=== PATIENT | female | born 1965 | race Caucasian/White ===

== ENCOUNTER 2017-07-15 12:08 | Emergency (ER) | payer MEDICAID, OTHER ==
[~2017-07-15] VITALS: Ht 160 cm; Wt 56.7 kg
[~2017-07-15 12:08] MED LIST: ARIP15TA2 PO; ATEN-41 PO; BENZ0.5T3 PO; CARB-61 PO; FLUT1DIS3 IH; FURO-149 PO; KLORCON PO; LANS30CA10 PO; LEVE500T13 PO; LORA-259 PO; LORA10TA68 PO; MONT10TA22 PO; NEU400 PO; PROP1TAB3 PO; SERT-131 PO; SPIR25TA4 PO; VERAMYST
[2017-07-15 12:10] VITALS: BP_SYST 133
[2017-07-15] MEDS ORDERED: OXYCODONE/ACETAMINOPHEN *10*mg/325 mg TABLET PO ONE (12:45)
[2017-07-15 13:18] VITALS: BP_SYST 123
== END 2017-07-15 13:18 | disposition home or self-care (01) ==
LOC: SED 12:08
DX: S93.401A Sprain of unspecified ligament of right ankle, initial encounter (principal); M25.551 Pain in right hip; J44.9 Chronic obstructive pulmonary disease, unspecified; K74.60 Unspecified cirrhosis of liver; Z86.73 Personal history of transient ischemic attack (TIA), and cerebral infarction without residual deficits; Z85.3 Personal history of malignant neoplasm of breast; Z95.0 Presence of cardiac pacemaker; Z88.2 Allergy status to sulfonamides; Z88.1 Allergy status to other antibiotic agents; Z79.899 Other long term (current) drug therapy; W22.8XXA Striking against or struck by other objects, initial encounter; Y93.01 Activity, walking, marching and hiking; Y92.89 Other specified places as the place of occurrence of the external cause; Y99.8 Other external cause status
CPT/HCPCS: 73502; 99284

== ENCOUNTER 2021-04-15 09:41 | Emergency (ER) | payer BC, MEDICAID ==
[~2021-04-15] VITALS: Ht 160 cm; Wt 59.0 kg
[~2021-04-15 09:41] MED LIST changes: -BENZ0.5T3 PO; +BENZ0.5T43 PO; -LANS30CA10 PO; +LANS30CA53 PO; -LEVE500T13 PO; +LEVE500T9 PO; -SPIR25TA4 PO; +SPIR25TA6 PO
[2021-04-15 09:49] VITALS: BP_SYST 131
[2021-04-15 10:33] LABS: BASOPHILS # (AUTO) 0.1 K/uL (0.0-0.2); BASOPHILS % (AUTO) 0.8 % (0.0-2.0); EOSINOPHILS # (AUTO) 0.3 K/uL (0.0-0.4); EOSINOPHILS % (AUTO) 3.8 % (0.0-4.0); HEMATOCRIT 35.8 % (36-48); HEMOGLOBIN 12.3 g/dL (12.0-16.0); LYMPHOCYTES # (AUTO) 2.9 K/uL (1.0-5.5); LYMPHOCYTES % (AUTO) 33.5 % (20.5-51.5); MEAN CORPUSCULAR HEMOGLOBIN 31 pg (27-31); MEAN CORPUSCULAR HGB CONC 34 % (32-36); MEAN CORPUSCULAR VOLUME 90 fL (79.0-98.0); MONOCYTES # (AUTO) 0.8 K/uL (0.0-1.0); MONOCYTES % (AUTO) 9.3 % (1.7-9.3); NEUTROPHILS # (AUTO) 4.6 K/uL (1.8-7.7); NEUTROPHILS % (AUTO) 52.6 % (40.0-70.0); PLATELET COUNT (AUTO) 304 K/uL (130-430); RED BLOOD CELL COUNT(AUTO) 3.98 MIL/uL (4.2-6.2); RED CELL DISTRIBUTION WIDTH 12.6 % (9.0-15.0); WHITE BLOOD COUNT (AUTO) 8.7 K/uL (4.8-10.8)
[2021-04-15 10:53] LABS: CALCIUM 9.1 mg/dL (8.4-11.0); POTASSIUM 5.3 mmol/L (3.5-5.1)
[2021-04-15 10:56] LABS: PROTHROMBIN TIME 9.9 SECS (9.5-12.5)
[2021-04-15 10:58] LABS: ALBUMIN 3.4 g/dL (3.4-4.8); TOTAL BILIRUBIN 0.3 mg/dL (0.0-1.0)
[2021-04-15] MEDS ORDERED: IBUP-1969 PO (11:13)
[2021-04-15] MEDS ORDERED: HYDR-3917 PO (11:13)
[2021-04-15] MEDS ORDERED: KETOROLAC TROMETHAMINE 30 MG VIAL IM ONE (11:30)
[2021-04-15 11:31] VITALS: BP_SYST 131
== END 2021-04-15 11:31 | disposition home or self-care (01) ==
LOC: SED 09:41
DX: R07.89 Other chest pain (principal); J44.9 Chronic obstructive pulmonary disease, unspecified; Z88.1 Allergy status to other antibiotic agents; Z88.2 Allergy status to sulfonamides; Z79.899 Other long term (current) drug therapy
CPT/HCPCS: 36415; 71045; 80053; 84484; 85025; 85610; 85730; 93005; 96372; 99285; J1885

== ENCOUNTER 2021-06-08 06:41 | Emergency (ER) | payer BC, MEDICAID ==
[~2021-06-08] VITALS: Ht 160 cm; Wt 63.5 kg
[~2021-06-08 06:41] MED LIST changes: +HYDR-3917 PO; +IBUP-1969 PO
[2021-06-08 07:15] VITALS: BP_SYST 127
[2021-06-08 07:42] LABS: BASOPHILS # (AUTO) 0.1 K/uL (0.0-0.2); BASOPHILS % (AUTO) 0.7 % (0.0-2.0); EOSINOPHILS # (AUTO) 0.2 K/uL (0.0-0.4); EOSINOPHILS % (AUTO) 2.2 % (0.0-4.0); HEMATOCRIT 37.3 % (36-48); HEMOGLOBIN 12.7 g/dL (12.0-16.0); LYMPHOCYTES # (AUTO) 2.2 K/uL (1.0-5.5); LYMPHOCYTES % (AUTO) 25.2 % (20.5-51.5); MEAN CORPUSCULAR HEMOGLOBIN 31 pg (27-31); MEAN CORPUSCULAR HGB CONC 34 % (32-36); MEAN CORPUSCULAR VOLUME 91 fL (79.0-98.0); MONOCYTES # (AUTO) 0.6 K/uL (0.0-1.0); NEUTROPHILS # (AUTO) 5.7 K/uL (1.8-7.7); NEUTROPHILS % (AUTO) 64.9 % (40.0-70.0); PLATELET COUNT (AUTO) 330 K/uL (130-430); RED CELL DISTRIBUTION WIDTH 13.3 % (9.0-15.0); WHITE BLOOD COUNT (AUTO) 8.7 K/uL (4.8-10.8)
[2021-06-08 08:10] LABS: CALCIUM 9.1 mg/dL (8.4-11.0); CREATININE 1.04 mg/dL (0.55-1.30); POTASSIUM 4.1 mmol/L (3.5-5.1)
[2021-06-08 08:15] LABS: ALBUMIN 3.7 g/dL (3.4-4.8); C-REACTIVE PROTEIN QUANT 0.3 mg/dL (0-0.5); TOTAL BILIRUBIN 0.4 mg/dL (0.0-1.0)
[2021-06-08] MEDS ORDERED: LIDOCAINE 1% 10 MG/ML, 20 ML MDV INJ ONE (08:15)
[2021-06-08] MEDS ORDERED: BACITRACIN 1 GM OINT TP ONE (08:15)
[2021-06-08] MEDS ORDERED: LIDOCAINE 1%, 20 ML MDV 20 ML ONE (08:18)
[2021-06-08 08:50] VITALS: BP_SYST 118
== END 2021-06-08 08:50 | disposition home or self-care (01) ==
LOC: SED 06:41
DX: L76.34 Postprocedural seroma of skin and subcutaneous tissue following other procedure (principal); J44.9 Chronic obstructive pulmonary disease, unspecified; Z88.1 Allergy status to other antibiotic agents; Z88.2 Allergy status to sulfonamides; Z88.8 Allergy status to other drugs, medicaments and biological substances; Z79.899 Other long term (current) drug therapy
CPT/HCPCS: 10140; 36415; 80053; 83605; 85025; 86140; 99284; J2001

== ENCOUNTER 2022-03-10 08:27 | Emergency (ER) | payer BC, MEDICAID ==
[~2022-03-10] VITALS: Ht 160 cm; Wt 64.4 kg
[2022-03-10 08:39] VITALS: BP_SYST 144
--- NOTE | 2022-03-10 08:39 | NUR ---
Patient to ER bed 7 to gown for evaluation. Side rails up. Report given to LYRIC DENNY.
--- NOTE | 2022-03-10 08:40 | NUR ---
Dr Olmedo at pt bedside
--- NOTE | 2022-03-10 08:42 | NUR ---
Shania collier in ED - 03/10/22 at 0905 by [email or web address] CARYN WILLSON AT THE BEDSIDE EXAMINING PT
--- NOTE | 2022-03-10 08:55 | NUR ---
xray at patients bed side
--- NOTE | 2022-03-10 09:15 | NUR ---
pt was driven to er by in private vehicle. patient has been experiensing left plantar pain on scale of 6/10 for the past two days. denies any trauma/injury to foot. patient has full range of motion, vs within normal limits. bed lowered and locked, rails up. pt has hx of copd
[2022-03-10] MEDS ORDERED: KETOROLAC TROMETHAMINE 30 MG VIAL IM ONE (09:30)
--- NOTE | 2022-03-10 09:30 | NUR ---
Patient given written and verbal discharge instructions and verbalizes understanding. ER Dr Honorio NEIL discussed with patient the results and treatment provided. Patient in stable condition. ID arm band removed. No Rx. Patient educated on pain management and to follow up with PMD. Pain Scale . Opportunity for questions provided and answered. Medication side effect fact sheet provided.
[2022-03-10 09:32] VITALS: BP_SYST 107
== END 2022-03-10 09:32 | disposition home or self-care (01) ==
LOC: SED 08:27
DX: M72.2 Plantar fascial fibromatosis (principal)
CPT/HCPCS: 73630; 96372; 99283; J1885

== ENCOUNTER 2022-08-20 11:01 | Emergency (ER) | payer BC, MEDICAID ==
[~2022-08-20] VITALS: Ht 157.5 cm; Wt 64.4 kg
--- NOTE | 2022-08-20 11:15 | NUR ---
PT PRESENTS TO THE ER BIB , CC RIGHT KNEE PAIN R/T SLIGHT SWELLING . PT STATES KNEE SUGERY IN 1998 TO LOCATION OF SWELLING. SWELLING IS MINIMAL NO EDAMATUOS TISSUE SURROUNDING LOCATION PT IS POINTING TO BELOW THE PATELLA. PT PROVIDES CURRENT LAB VALUES FROM 08/06/22 WITH ELEVATED WBC OF 11,000 FROM PCP. PT STATES TAKING PERCOCET FOR PAIN MANAGEMENT.
--- NOTE | 2022-08-20 11:21 | NUR ---
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
--- NOTE | 2022-08-20 11:21 | NUR ---
PT REQUESTED PILLOW FOR KNEE POSITIONING . PT RESTING WITH HOB UP OXYGEN 2 LITERS FLOWING SATURATION 94%
--- NOTE | 2022-08-20 11:21 | NUR ---
ER at bedside examining patient.
[2022-08-20 11:27] LABS: BASOPHILS # (AUTO) 0.1 K/uL (0.0-0.2); BASOPHILS % (AUTO) 0.7 % (0.0-2.0); EOSINOPHILS # (AUTO) 0.3 K/uL (0.0-0.4); EOSINOPHILS % (AUTO) 3.3 % (0.0-4.0); LYMPHOCYTES # (AUTO) 2.7 K/uL (1.0-5.5); LYMPHOCYTES % (AUTO) 26.4 % (20.5-51.5); MEAN CORPUSCULAR VOLUME 89 fL (79.0-98.0); MONOCYTES # (AUTO) 0.7 K/uL (0.0-1.0); MONOCYTES % (AUTO) 6.8 % (1.7-9.3); NEUTROPHILS # (AUTO) 6.3 K/uL (1.8-7.7); NEUTROPHILS % (AUTO) 62.8 % (40.0-70.0); PLATELET COUNT (AUTO) 350 K/uL (130-430); RED BLOOD CELL COUNT(AUTO) 3.95 MIL/uL (4.2-6.2); RED CELL DISTRIBUTION WIDTH 13.1 % (9.0-15.0); WHITE BLOOD COUNT (AUTO) 10.1 K/uL (4.8-10.8)
[2022-08-20 11:31] VITALS: BP_SYST 106
[2022-08-20 12:19] LABS: CALCIUM 9.3 mg/dL (8.4-11.0); CREATININE 1.11 mg/dL (0.55-1.30); POTASSIUM 4.5 mmol/L (3.5-5.1)
[2022-08-20 12:20] LABS: ALBUMIN 3.5 g/dL (3.4-4.8); C-REACTIVE PROTEIN QUANT 3.2 mg/dL (0-0.5); TOTAL BILIRUBIN 0.4 mg/dL (0.0-1.0); URIC ACID 5.6 mg/dL (2.4-7.0)
--- NOTE | 2022-08-20 14:03 | NUR ---
Patient given written and verbal discharge instructions and verbalizes understanding. ER MD discussed with patient the results and treatment provided. Patient in stable condition. ID arm band removed. Opportunity for questions provided and answered. Medication side effect fact sheet provided.
[2022-08-20 15:36] LABS: ERYTHROCYTE SEDIMENTATION RATE 27 MM/HR (0-20)
[2022-08-20 16:29] VITALS: BP_SYST 106
== END 2022-08-20 14:03 | disposition home or self-care (01) ==
LOC: SED 11:01
DX: M25.561 Pain in right knee (principal); J44.9 Chronic obstructive pulmonary disease, unspecified; Z88.1 Allergy status to other antibiotic agents; Z88.2 Allergy status to sulfonamides; Z79.899 Other long term (current) drug therapy
CPT/HCPCS: 36415; 73560-TC; 80053; 84550; 85025; 85651-TC; 86140; 99284

== ENCOUNTER 2023-01-26 16:59 | Emergency (ER) | payer BC, MEDICAID ==
[~2023-01-26] VITALS: Ht 160 cm; Wt 56.7 kg
[2023-01-26 17:05] VITALS: BP_SYST 112
--- NOTE | 2023-01-26 17:05 | NUR ---
Patient triaged and placed in waiting room. VSS and patient appears in no acute distress at this time. Accompanied by SELF, awaiting available bed, and MD notified of need for MSE.
--- NOTE | 2023-01-26 17:07 | NUR ---
PT CAME IN FROM HOME C/O LEFT ARM WEAKNESS AND TINGLING SINCE THURSDAY. NO FACIAL DROOP. 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 PT IS AMBULATORY, AAOX4, VSS
[2023-01-26 18:02] LABS: BASOPHILS # (AUTO) 0.1 K/uL (0.0-0.2); BASOPHILS % (AUTO) 0.7 % (0.0-2.0); EOSINOPHILS # (AUTO) 0.2 K/uL (0.0-0.4); EOSINOPHILS % (AUTO) 1.8 % (0.0-4.0); HEMATOCRIT 36.1 % (36-48); HEMOGLOBIN 12.2 g/dL (12.0-16.0); LYMPHOCYTES # (AUTO) 3.6 K/uL (1.0-5.5); MEAN CORPUSCULAR HEMOGLOBIN 31 pg (27-31); MEAN CORPUSCULAR HGB CONC 34 % (32-36); MEAN CORPUSCULAR VOLUME 90 fL (79.0-98.0); MONOCYTES # (AUTO) 0.8 K/uL (0.0-1.0); MONOCYTES % (AUTO) 8.1 % (1.7-9.3); NEUTROPHILS # (AUTO) 4.9 K/uL (1.8-7.7); NEUTROPHILS % (AUTO) 51.4 % (40.0-70.0); PLATELET COUNT (AUTO) 352 K/uL (130-430); RED BLOOD CELL COUNT(AUTO) 3.99 MIL/uL (4.2-6.2); RED CELL DISTRIBUTION WIDTH 13.6 % (9.0-15.0); WHITE BLOOD COUNT (AUTO) 9.5 K/uL (4.8-10.8)
[2023-01-26 18:26] LABS: PROTHROMBIN TIME 10.4 SECS (9.5-12.5)
[2023-01-26 18:45] LABS: ANION GAP 7 (5-15); CALCIUM 8.9 mg/dL (8.4-11.0); CHLORIDE 101 mmol/L (98-107); GLUCOSE 83 mg/dL (70-99); UREA NITROGEN, BLOOD 23 mg/dL (8-21)
[2023-01-26 18:48] LABS: GFR AFRICAN AMERICAN 43 mL/min (>90)
[2023-01-26 18:54] LABS: ALANINE AMINOTRANSFERASE 24 U/L (12-78); ALBUMIN 3.5 g/dL (3.4-4.8); ASPARTATE AMINOTRANSFERASE 12 U/L (10-37); TOTAL BILIRUBIN 0.2 mg/dL (0.0-1.0)
[2023-01-26 19:43] VITALS: BP_SYST 130
--- NOTE | 2023-01-26 19:45 | NUR ---
Patient given written and verbal discharge instructions and verbalizes understanding. ER MD discussed with patient the results and treatment provided. Patient in stable condition. ID arm band removed. Rx of given. Patient educated on pain management and to follow up with PMD. Pain Scale 0. Opportunity for questions provided and answered. Medication side effect fact sheet provided.
== END 2023-01-26 19:43 | disposition home or self-care (01) ==
LOC: SED 16:59
DX: R20.2 Paresthesia of skin (principal); J44.9 Chronic obstructive pulmonary disease, unspecified; Z88.1 Allergy status to other antibiotic agents; Z88.2 Allergy status to sulfonamides; Z79.899 Other long term (current) drug therapy
CPT/HCPCS: 36415; 70450-TC; 71045; 76376; 80053; 82550; 84484; 85025; 85610-TC; 85730-TC; 99285

== ENCOUNTER 2023-06-07 08:53 | Emergency (ER) | payer BC, MEDICAID ==
[~2023-06-07] VITALS: Ht 160 cm; Wt 60.3 kg
[~2023-06-07 08:53] MED LIST changes: +MONT-47 PO; -MONT10TA22 PO
[2023-06-07 08:58] VITALS: BP_SYST 108; PULSE 85; RESP 18; TEMP 98.3; O2SAT 98
--- NOTE | 2023-06-07 09:06 | NUR ---
Patient to ER bed 02 to gown for evaluation. Side rails up.
--- NOTE | 2023-06-07 09:10 | NUR ---
RECEIVED PT FROM LYRIC ERICKSON. PT BIB FAMILY FOR C/O ABDOMINAL PAIN. PT IS AAOX4. ON R/A. C/O N/V AND AB PAIN 6/1O. DISTAL PULSES NORMAL, SKIN WARM, NO EDEMA. SIDERAILS UP X2.
--- NOTE | 2023-06-07 09:11 | NUR ---
DR. KEYES AT BEDSIDE TO ASSESS PT.
--- NOTE | 2023-06-07 09:30 | NUR ---
# 20 gauge angiocath placed to LW. Use of asceptic technique. Opsite placed over site. Blood return noted. Blood for lab drawn from site. Flushed with 10 cc of normal saline. No evidence of infiltration noted. Patient tolerated well. URINE OBTAINED AND TAKEN TO LAB.
[2023-06-07 09:48] LABS: BASOPHILS # (AUTO) 0.1 K/uL (0.0-0.2); BASOPHILS % (AUTO) 0.7 % (0.0-2.0); EOSINOPHILS # (AUTO) 0.2 K/uL (0.0-0.4); EOSINOPHILS % (AUTO) 2.3 % (0.0-4.0); HEMATOCRIT 36.7 % (36-48); HEMOGLOBIN 12.4 g/dL (12.0-16.0); LYMPHOCYTES # (AUTO) 2.4 K/uL (1.0-5.5); LYMPHOCYTES % (AUTO) 25.9 % (20.5-51.5); MEAN CORPUSCULAR HEMOGLOBIN 31 pg (27-31); MEAN CORPUSCULAR HGB CONC 34 % (32-36); MEAN CORPUSCULAR VOLUME 91 fL (79.0-98.0); MONOCYTES # (AUTO) 0.8 K/uL (0.0-1.0); MONOCYTES % (AUTO) 8.1 % (1.7-9.3); NEUTROPHILS # (AUTO) 5.9 K/uL (1.8-7.7); PLATELET COUNT (AUTO) 323 K/uL (130-430); RED BLOOD CELL COUNT(AUTO) 4.04 MIL/uL (4.2-6.2); RED CELL DISTRIBUTION WIDTH 12.9 % (9.0-15.0); WHITE BLOOD COUNT (AUTO) 9.4 K/uL (4.8-10.8)
[2023-06-07] MEDS ORDERED: HYDROcodone/ACETAMIN 7.5-325 MG TAB PO ONE (10:00)
[2023-06-07] MEDS ORDERED: KETOROLAC TROMETHAMINE 30 MG VIAL IM ONE (10:00)
[2023-06-07 10:06] LABS: ANION GAP 9 (5-15); CALCIUM 8.9 mg/dL (8.4-11.0); CHLORIDE 106 mmol/L (98-107); CREATININE 0.98 mg/dL (0.55-1.30); GFR AFRICAN AMERICAN 75 mL/min (>90); GLUCOSE 77 mg/dL (74-106); UREA NITROGEN, BLOOD 16 mg/dL (8-21)
--- NOTE | 2023-06-07 10:11 | NUR ---
CT SCAN COMPLETED. PT PLACED BACK ON MONITOR. TORADOL 15MG IVP AND NORCO 7.5/325MG PO GIVEN.
[2023-06-07 10:12] LABS: ACETONE, SERUM NEGATIVE (NEGATIVE)
[2023-06-07] MEDS ORDERED: AMOX-423 PO (10:17)
[2023-06-07] MEDS ORDERED: IBUP-1969 PO (10:17)
[2023-06-07 10:20] LABS: ALANINE AMINOTRANSFERASE 33 U/L (12-78); ALBUMIN 3.5 g/dL (3.4-4.8); AMYLASE 45 U/L (0-100); ASPARTATE AMINOTRANSFERASE 19 U/L (10-37); LIPASE 58 U/L (73-393); TOTAL BILIRUBIN 0.3 mg/dL (0.0-1.0)
[2023-06-07 10:28] VITALS: BP_SYST 110; PULSE 86; RESP 16; TEMP 97.8; O2SAT 99
[2023-06-07 10:29] LABS: BILIRUBIN,URINE 1+ (NEGATIVE); CLARITY/URINE SL CLOUDY (CLEAR); COLOR,URINE YELLOW (YELLOW); GLUCOSE,URINE NEGATIVE (NEGATIVE); KETONES,URINE TRACE (NEGATIVE); LEUKOCYTE ESTERASE ,URINE NEGATIVE (NEGATIVE); NITRITE, URINE NEGATIVE (NEGATIVE); PH,URINE 5.5 (5.0-8.0); PROTEIN URINE TRACE (NEGATIVE)
[2023-06-07 10:30] LABS: BLOOD, URINE TRACE (NEGATIVE)
--- NOTE | 2023-06-07 10:31 | NUR ---
Patient given written and verbal discharge instructions and verbalizes understanding. ER MD discussed with patient the results and treatment provided. Patient in stable condition. ID arm band removed. IV catheter removed intact and dressing applied, no active bleeding. Rx of ARIANA FARIA given. Patient educated on pain management and to follow up with PMD. Pain Scale 0/10. Opportunity for questions provided and answered. Medication side effect fact sheet provided.
[2023-06-07 10:37] LABS: BACTERIA,URINE RARE /HPF (None Seen); URINE AMORPHOUS URATE 2+ /HPF (None Seen); WBC,URINE 0-3 /HPF (0-3)
[2023-06-07 10:38] LABS: MUCUS,URINE 1+ /LPF (None Seen)
== END 2023-06-07 10:31 | disposition home or self-care (01) ==
LOC: SED 08:53
DX: K52.9 Noninfective gastroenteritis and colitis, unspecified (principal); R10.84 Generalized abdominal pain; R11.10 Vomiting, unspecified; J44.9 Chronic obstructive pulmonary disease, unspecified; Z88.1 Allergy status to other antibiotic agents; Z88.2 Allergy status to sulfonamides; Z85.3 Personal history of malignant neoplasm of breast; Z79.899 Other long term (current) drug therapy
CPT/HCPCS: 99285; 74176; 96374; 80053; 81000; 82009; 82150; 83690; 85025; 36415; 76376; 83605; 82397; J1885

== ENCOUNTER 2023-07-14 13:20 | Emergency (ER) | payer BC, MEDICAID ==
[~2023-07-14] VITALS: Ht 160 cm; Wt 59.4 kg
[~2023-07-14 13:20] MED LIST changes: +AMOX-423 PO
[2023-07-14 13:38] VITALS: BP_SYST 96; PULSE 93; RESP 16; TEMP 98.1; O2SAT 95
[2023-07-14 16:03] VITALS: BP_SYST 96; PULSE 93; RESP 16; TEMP 98.1; O2SAT 95
== END 2023-07-14 16:05 | disposition left against medical advice (07) ==
LOC: SED 13:20
DX: M25.561 Pain in right knee (principal); M79.675 Pain in left toe(s); Z53.21 Procedure and treatment not carried out due to patient leaving prior to being seen by health care provider
CPT/HCPCS: 99281; J7030